=== PATIENT | female | born 1960 | race Caucasian/White ===

== ENCOUNTER 2016-12-17 15:46 | Emergency (ER) | payer OTHER, MEDICAID ==
[~2016-12-17 15:46] MED LIST: AMOXICILLIN500 MG PO; BENAZEPRIL20 M1 PO; DEC150 PO; FLUOXETINE40 MG PO; GABAPENTIN100 M2 PO; GLU500 PO; HYD25 PO; LAC PO; LEVAQUIN750 MG PO; LOT20 PO; NORCO1 TA2 PO; ONDANSETRON4 M3 PO; PRI20 PO; REG10 PO; REM15 PO; RES15 PO; SOD1 PO; VIC PO; VITD PO; ZITHROMAX TRI-500 MG PO
[2016-12-17 15:50] VITALS: BP 132/71
== END 2016-12-17 17:19 | disposition home or self-care (01) ==
LOC: ED 15:46
DX: M54.32 Sciatica, left side (principal); M54.31 Sciatica, right side; M19.90 Unspecified osteoarthritis, unspecified site; K21.9 Gastro-esophageal reflux disease without esophagitis; G89.29 Other chronic pain; E11.9 Type 2 diabetes mellitus without complications; I10 Essential (primary) hypertension; Z88.8 Allergy status to other drugs, medicaments and biological substances; Z79.84 Long term (current) use of oral hypoglycemic drugs
CPT/HCPCS: Q0162

== ENCOUNTER 2018-04-24 22:37 | Emergency (ER) | payer OTHER, MEDICAID ==
[~2018-04-24] VITALS: Ht 157.5 cm; Wt 68.9 kg
[2018-04-24 22:46] VITALS: Ht 157.5 cm; Wt 68.9 kg
[2018-04-24 23:35] LABS: UA SPECIFIC GRAVITY >=1.030 (1.005-1.035); microscopic required? YES; urine erythrocyte NEGATIVE (NEGATIVE)
[2018-04-24 23:38] LABS: BASOPHIL % 0 % (0-2); PLATELET COUNT 445 x10^3mcL (130-400)
[2018-04-24 23:40] LABS: CALCIUM 8.6 mg/dL (8.5-10.1); CARBON DIOXIDE 22.6 mmol/L (21-32); CHLORIDE SERUM 106 mmol/L (98-107); CREATININE SERUM 0.5 mg/dL (0.6-1.0); GFR1 > 60 mL/min; GLUCOSE SERUM 130 mg/dL (74-106); POTASSIUM SERUM 3.7 mmol/L (3.5-5.1); SODIUM SERUM 140 mmol/L (136-145)
[2018-04-24 23:45] LABS: ALKALINE PHOSPHATASE 92 U/L (46-116); ALT/SGPT 15 U/L (14-59); AST/SGOT 10 U/L (15-37); BILIRUBIN TOTAL 0.2 mg/dL (0.20-1.00); TOTAL PROTEIN, SERUM 7.5 g/dL (6.4-8.2)
[2018-04-24 23:48] LABS: ALBUMIN 3.3 g/dL (3.4-5.0)
[2018-04-25 05:07] VITALS: BP 118/61
== END 2018-04-25 05:08 | disposition home or self-care (01) ==
LOC: ED 22:37
PROVIDERS: Emergency Medicine
DX: K57.90 Diverticulosis of intestine, part unspecified, without perforation or abscess without bleeding (principal); I10 Essential (primary) hypertension; E11.9 Type 2 diabetes mellitus without complications; K21.9 Gastro-esophageal reflux disease without esophagitis; M19.90 Unspecified osteoarthritis, unspecified site; Z88.6 Allergy status to analgesic agent
CPT/HCPCS: J1885; J2270; J2405; J7030; Q0092

== ENCOUNTER 2018-04-26 16:30 | Emergency (ER) | payer OTHER, MEDICAID ==
[~2018-04-26] VITALS: Ht 154.9 cm; Wt 68.9 kg
[2018-04-26 16:39] VITALS: Ht 154.9 cm; Wt 68.9 kg
[2018-04-26 18:31] LABS: UA SPECIFIC GRAVITY 1.025 (1.005-1.035); microscopic required? YES; urine erythrocyte NEGATIVE (NEGATIVE)
[2018-04-26 18:54] LABS: CALCIUM 8.8 mg/dL (8.5-10.1); CARBON DIOXIDE 24.1 mmol/L (21-32); CHLORIDE SERUM 107 mmol/L (98-107); CREATININE SERUM 0.5 mg/dL (0.6-1.0); GFR1 > 60 mL/min; GLUCOSE SERUM 117 mg/dL (74-106); POTASSIUM SERUM 3.7 mmol/L (3.5-5.1); SODIUM SERUM 141 mmol/L (136-145)
[2018-04-26 18:57] LABS: BASOPHIL % 0.1 % (0-2); PLATELET COUNT 390 x10^3mcL (130-400)
[2018-04-26 18:58] LABS: ALKALINE PHOSPHATASE 84 U/L (46-116); ALT/SGPT 15 U/L (14-59); AST/SGOT 11 U/L (15-37); BILIRUBIN TOTAL 0.2 mg/dL (0.20-1.00); LIPASE 209 IU/L (73-393); TOTAL PROTEIN, SERUM 6.8 g/dL (6.4-8.2)
[2018-04-26 18:59] LABS: RED CELL DISTRIBUTION WIDTH 17.9 % (11.5-14.5)
[2018-04-26 19:43] VITALS: BP 137/76
== END 2018-04-26 19:43 | disposition home or self-care (01) ==
LOC: ED 16:30
PROVIDERS: Emergency Medicine
DX: G89.29 Other chronic pain (principal); N39.0 Urinary tract infection, site not specified; K21.9 Gastro-esophageal reflux disease without esophagitis; I10 Essential (primary) hypertension; E11.9 Type 2 diabetes mellitus without complications; Z88.5 Allergy status to narcotic agent
CPT/HCPCS: 36415; Q0162; Q0163

== ENCOUNTER 2018-05-22 16:59 | Inpatient (IN) | payer OTHER, MEDICAID ==
[~2018-05-22] VITALS: Ht 154.9 cm; Wt 78.0 kg
[2018-05-22 17:06] VITALS: Ht 154.9 cm; Wt 78.0 kg
[2018-05-22 17:46] LABS: UA SPECIFIC GRAVITY 1.015 (1.005-1.035); microscopic required? YES; urine erythrocyte NEGATIVE (NEGATIVE)
[2018-05-22 18:03] LABS: BASOPHIL % 0.3 % (0-2)
[2018-05-22 18:04] LABS: PLATELET COUNT 581 x10^3mcL (130-400); RED CELL DISTRIBUTION WIDTH 18.8 % (11.5-14.5)
[2018-05-22 18:10] LABS: CALCIUM 8.9 mg/dL (8.5-10.1); CARBON DIOXIDE 26.5 mmol/L (21-32); CHLORIDE SERUM 106 mmol/L (98-107); CREATININE SERUM 0.4 mg/dL (0.6-1.0); GFR1 > 60 mL/min; GLUCOSE SERUM 85 mg/dL (74-106); POTASSIUM SERUM 3.3 mmol/L (3.5-5.1); SODIUM SERUM 143 mmol/L (136-145)
[2018-05-22 18:14] LABS: ALKALINE PHOSPHATASE 105 U/L (46-116); ALT/SGPT 16 U/L (14-59); AMYLASE 54 U/L (25-115); AST/SGOT 25 U/L (15-37); BILIRUBIN TOTAL 0.35 mg/dL (0.20-1.00); LIPASE 115 IU/L (73-393); TOTAL PROTEIN, SERUM 7.7 g/dL (6.4-8.2)
[2018-05-22 18:17] LABS: ALBUMIN 3.1 g/dL (3.4-5.0)
[2018-05-22] MEDS ORDERED: FUROSEMIDE20 MG PO (22:32)
[2018-05-22] MEDS ORDERED: LYRICA75 M1 PO (22:32)
[2018-05-22] MEDS ORDERED: MOT800 PO (22:33)
[2018-05-22 22:53] LABS: MAGNESIUM 1.3 mg/dL (1.8-2.4); PHOSPHOROUS 3.6 mg/dL (2.5-4.9)
[2018-05-22 23:03] LABS: T3 TOTAL 1.61 ng/mL
[2018-05-22 23:04] LABS: FREE T4 1.16 ng/dL (0.76-1.46); FREE THYROXINE INDEX 2.6 ug/dL (1.4-4.5); T4(THYROXINE) 8.4 ug/dL (4.7-13.3)
[2018-05-22 23:31] VITALS: BP 147/83
[2018-05-23 05:29] VITALS: BP 142/75
[2018-05-23 06:58] LABS: MAGNESIUM 1.9 mg/dL (1.8-2.4); PHOSPHOROUS 4.5 mg/dL (2.5-4.9)
[2018-05-23 07:10] LABS: BASOPHIL % 0.6 % (0-2); PLATELET COUNT 478 x10^3mcL (130-400); RED CELL DISTRIBUTION WIDTH 18.2 % (11.5-14.5)
[2018-05-23 10:40] VITALS: BP 162/63
[2018-05-23 12:34] VITALS: BP 152/80
[2018-05-23 18:46] VITALS: BP 127/60
[2018-05-24 04:26] VITALS: BP 138/70
[2018-05-24 07:52] VITALS: BP 155/76
[2018-05-24 08:07] LABS: BASOPHIL % 0.5 % (0-2)
[2018-05-24 08:11] LABS: CALCIUM 8.4 mg/dL (8.5-10.1); CARBON DIOXIDE 26.9 mmol/L (21-32); CHLORIDE SERUM 104 mmol/L (98-107); CREATININE SERUM 0.3 mg/dL (0.6-1.0); GFR1 > 60 mL/min; GLUCOSE SERUM 89 mg/dL (74-106); MAGNESIUM 1.3 mg/dL (1.8-2.4); PHOSPHOROUS 3.4 mg/dL (2.5-4.9); SODIUM SERUM 140 mmol/L (136-145)
[2018-05-24 08:18] LABS: PLATELET COUNT 492 x10^3mcL (130-400); RED CELL DISTRIBUTION WIDTH 17.1 % (11.5-14.5)
[2018-05-24 08:20] LABS: POTASSIUM SERUM 2.5 mmol/L (3.5-5.1)
[2018-05-24 08:22] LABS: rbc morphology (normal/abnorm) ABNORMAL (NORMAL)
[2018-05-24 16:39] VITALS: BP 135/68
[2018-05-24 17:17] LABS: CALCIUM 8.6 mg/dL (8.5-10.1); CARBON DIOXIDE 26.8 mmol/L (21-32); CHLORIDE SERUM 105 mmol/L (98-107); CREATININE SERUM 0.3 mg/dL (0.6-1.0); GFR1 > 60 mL/min; GLUCOSE SERUM 95 mg/dL (74-106); POTASSIUM SERUM 3.6 mmol/L (3.5-5.1); SODIUM SERUM 139 mmol/L (136-145)
[2018-05-24 21:33] VITALS: BP 136/61
[2018-05-25 05:30] VITALS: BP 102/51
[2018-05-25 06:37] LABS: BASOPHIL % 0.3 % (0-2)
[2018-05-25 06:46] LABS: PLATELET COUNT 484 x10^3mcL (130-400); RED CELL DISTRIBUTION WIDTH 18.9 % (11.5-14.5)
[2018-05-25 07:05] LABS: CALCIUM 9.5 mg/dL (8.5-10.1); CARBON DIOXIDE 25.4 mmol/L (21-32); CHLORIDE SERUM 103 mmol/L (98-107); CREATININE SERUM 0.6 mg/dL (0.6-1.0); GFR1 > 60 mL/min; GLUCOSE SERUM 94 mg/dL (74-106); MAGNESIUM 1.4 mg/dL (1.8-2.4); PHOSPHOROUS 5.1 mg/dL (2.5-4.9); POTASSIUM SERUM 3.9 mmol/L (3.5-5.1); SODIUM SERUM 139 mmol/L (136-145)
[2018-05-25 08:30] VITALS: BP 132/69
[2018-05-25 14:16] VITALS: BP 122/58
[2018-05-25 16:48] VITALS: BP 119/61
[2018-05-25 21:21] VITALS: BP 105/48
[2018-05-26 04:54] VITALS: BP 117/68
[2018-05-26 07:13] LABS: CALCIUM 9.2 mg/dL (8.5-10.1); CARBON DIOXIDE 22.7 mmol/L (21-32); CHLORIDE SERUM 104 mmol/L (98-107); CREATININE SERUM 0.3 mg/dL (0.6-1.0); GFR1 > 60 mL/min; GLUCOSE SERUM 91 mg/dL (74-106); MAGNESIUM 1.5 mg/dL (1.8-2.4); PHOSPHOROUS 4.6 mg/dL (2.5-4.9); POTASSIUM SERUM 3.8 mmol/L (3.5-5.1); SODIUM SERUM 139 mmol/L (136-145)
[2018-05-26 07:29] LABS: BASOPHIL % 0.4 % (0-2); PLATELET COUNT 475 x10^3mcL (130-400); RED CELL DISTRIBUTION WIDTH 18.7 % (11.5-14.5)
[2018-05-26 07:30] LABS: rbc morphology (normal/abnorm) ABNORMAL (NORMAL)
[2018-05-26 08:11] LABS: AMPHETAMINE QUAL UR NONE DETECTED (See below)
[2018-05-26 08:30] VITALS: BP 129/71
[2018-05-26 16:41] VITALS: BP 122/67
[2018-05-26 21:30] VITALS: BP 125/67
[2018-05-27 05:46] VITALS: BP 122/70
[2018-05-27 06:43] LABS: BASOPHIL % 0.5 % (0-2)
[2018-05-27 06:56] LABS: PLATELET COUNT 478 x10^3mcL (130-400); RED CELL DISTRIBUTION WIDTH 18.4 % (11.5-14.5)
[2018-05-27 06:57] LABS: rbc morphology (normal/abnorm) ABNORMAL (NORMAL)
[2018-05-27 07:26] LABS: CALCIUM 8.7 mg/dL (8.5-10.1); CARBON DIOXIDE 15.5 mmol/L (21-32); CHLORIDE SERUM 107 mmol/L (98-107); CREATININE SERUM 0.4 mg/dL (0.6-1.0); GFR1 > 60 mL/min; GLUCOSE SERUM 71 mg/dL (74-106); MAGNESIUM 1.4 mg/dL (1.8-2.4); PHOSPHOROUS 3.1 mg/dL (2.5-4.9); POTASSIUM SERUM 3.1 mmol/L (3.5-5.1); SODIUM SERUM 141 mmol/L (136-145)
[2018-05-27 08:24] VITALS: BP 141/73
[2018-05-27] MEDS ORDERED: PHE25I IV (09:54)
[2018-05-27] MEDS ORDERED: SCOP TD (09:55)
[2018-05-27 13:18] VITALS: BP 142/69
[2018-05-27 16:43] VITALS: BP 132/59
[2018-05-27 20:56] VITALS: BP 119/64
[2018-05-28 05:04] VITALS: BP 129/63
[2018-05-28] MEDS ORDERED: REG10I IV (06:51)
[2018-05-28 09:14] LABS: CARBON DIOXIDE 20.2 mmol/L (21-32); CHLORIDE SERUM 108 mmol/L (98-107); CREATININE SERUM 0.3 mg/dL (0.6-1.0); GFR1 > 60 mL/min; GLUCOSE SERUM 82 mg/dL (74-106); MAGNESIUM 1.1 mg/dL (1.8-2.4); PHOSPHOROUS 2.3 mg/dL (2.5-4.9); POTASSIUM SERUM 3.2 mmol/L (3.5-5.1); SODIUM SERUM 142 mmol/L (136-145)
[2018-05-28 09:18] VITALS: BP 150/70
[2018-05-28 10:16] LABS: BASOPHIL % 2.3 % (0-2); PLATELET COUNT 480 x10^3mcL (130-400); RED CELL DISTRIBUTION WIDTH 18.7 % (11.5-14.5)
[2018-05-28] MEDS ORDERED: REG10 PO (10:36)
[2018-05-28] MEDS ORDERED: CAR1 PO (10:36)
[2018-05-28 13:07] VITALS: BP 117/58; BP 150/70
[2018-05-28 17:44] VITALS: BP 141/75
[2018-05-28 21:35] VITALS: BP 155/72
[2018-05-29 06:09] VITALS: BP 129/70
[2018-05-29 08:34] VITALS: BP 120/66
[2018-05-29 10:35] LABS: BASOPHIL % 1.4 % (0-2)
[2018-05-29 10:36] LABS: PLATELET COUNT 464 x10^3mcL (130-400); RED CELL DISTRIBUTION WIDTH 18.8 % (11.5-14.5); rbc morphology (normal/abnorm) ABNORMAL (NORMAL)
[2018-05-29 10:49] LABS: CALCIUM 8.3 mg/dL (8.5-10.1); CARBON DIOXIDE 25.3 mmol/L (21-32); CHLORIDE SERUM 103 mmol/L (98-107); CREATININE SERUM 0.3 mg/dL (0.6-1.0); GFR1 > 60 mL/min; GLUCOSE SERUM 106 mg/dL (74-106); PHOSPHOROUS 2.6 mg/dL (2.5-4.9); SODIUM SERUM 137 mmol/L (136-145)
[2018-05-29 10:52] LABS: POTASSIUM SERUM 2.1 mmol/L (3.5-5.1)
[2018-05-29 17:00] VITALS: BP 126/60
[2018-05-29 20:56] VITALS: BP 128/66
[2018-05-30 05:09] VITALS: BP 144/72
[2018-05-30 07:29] LABS: BASOPHIL % 1.7 % (0-2)
[2018-05-30 07:43] LABS: PLATELET COUNT 494 x10^3mcL (130-400); RED CELL DISTRIBUTION WIDTH 18.8 % (11.5-14.5)
[2018-05-30 07:44] LABS: CALCIUM 8.3 mg/dL (8.5-10.1); CARBON DIOXIDE 24.4 mmol/L (21-32); CHLORIDE SERUM 106 mmol/L (98-107); CREATININE SERUM 0.2 mg/dL (0.6-1.0); GFR1 > 60 mL/min; GLUCOSE SERUM 101 mg/dL (74-106); MAGNESIUM 1.4 mg/dL (1.8-2.4); PHOSPHOROUS 3.3 mg/dL (2.5-4.9); SODIUM SERUM 142 mmol/L (136-145)
[2018-05-30 07:57] LABS: POTASSIUM SERUM 2.4 mmol/L (3.5-5.1)
[2018-05-30 09:17] VITALS: BP 125/68
[2018-05-30 17:09] VITALS: BP 142/68
[2018-05-30 18:51] LABS: CALCIUM 8.5 mg/dL (8.5-10.1); CARBON DIOXIDE 27.9 mmol/L (21-32); CHLORIDE SERUM 107 mmol/L (98-107); CREATININE SERUM 0.2 mg/dL (0.6-1.0); GFR1 > 60 mL/min; GLUCOSE SERUM 99 mg/dL (74-106); MAGNESIUM 1.6 mg/dL (1.8-2.4); SODIUM SERUM 144 mmol/L (136-145)
[2018-05-30 19:08] LABS: POTASSIUM SERUM 2.9 mmol/L (3.5-5.1)
[2018-05-30 20:53] VITALS: BP 136/65
[2018-05-31 05:11] VITALS: BP 119/65
[2018-05-31 06:41] LABS: CALCIUM 8.1 mg/dL (8.5-10.1); CARBON DIOXIDE 27.2 mmol/L (21-32); CHLORIDE SERUM 106 mmol/L (98-107); CREATININE SERUM 0.3 mg/dL (0.6-1.0); GFR1 > 60 mL/min; GLUCOSE SERUM 108 mg/dL (74-106); MAGNESIUM 1.4 mg/dL (1.8-2.4); PHOSPHOROUS 4.1 mg/dL (2.5-4.9); SODIUM SERUM 143 mmol/L (136-145)
[2018-05-31 06:46] LABS: POTASSIUM SERUM 2.7 mmol/L (3.5-5.1)
[2018-05-31 08:30] VITALS: BP 122/52
[2018-05-31 09:45] LABS: BASOPHIL % 0.5 % (0-2)
[2018-05-31 09:48] LABS: RED CELL DISTRIBUTION WIDTH 19.1 % (11.5-14.5)
[2018-05-31 10:00] LABS: PLATELET COUNT 515 x10^3mcL (130-400)
[2018-05-31 16:36] VITALS: BP 124/60
[2018-05-31 21:24] VITALS: BP 109/46
[2018-06-01 05:11] VITALS: BP 116/62
[2018-06-01 06:59] LABS: BASOPHIL % 1.7 % (0-2)
[2018-06-01 07:20] LABS: CALCIUM 8.1 mg/dL (8.5-10.1); CARBON DIOXIDE 24.9 mmol/L (21-32); CHLORIDE SERUM 104 mmol/L (98-107); CREATININE SERUM 0.4 mg/dL (0.6-1.0); GFR1 > 60 mL/min; GLUCOSE SERUM 120 mg/dL (74-106); MAGNESIUM 1.6 mg/dL (1.8-2.4); PHOSPHOROUS 4.1 mg/dL (2.5-4.9); SODIUM SERUM 139 mmol/L (136-145)
[2018-06-01 07:34] LABS: POTASSIUM SERUM 2.7 mmol/L (3.5-5.1)
[2018-06-01 09:01] LABS: PLATELET COUNT 510 x10^3mcL (130-400); RED CELL DISTRIBUTION WIDTH 19.7 % (11.5-14.5)
[2018-06-01 09:35] VITALS: BP 118/54
[2018-06-01 12:24] VITALS: BP 114/52
[2018-06-01 17:04] VITALS: BP 132/63
[2018-06-01 22:43] VITALS: BP 125/83
[2018-06-02 05:19] VITALS: BP 100/50
[2018-06-02 06:54] LABS: RED CELL DISTRIBUTION WIDTH 19.8 % (11.5-14.5)
[2018-06-02 07:24] LABS: CALCIUM 8.2 mg/dL (8.5-10.1); CARBON DIOXIDE 27.1 mmol/L (21-32); CHLORIDE SERUM 106 mmol/L (98-107); CREATININE SERUM 0.3 mg/dL (0.6-1.0); GFR1 > 60 mL/min; GLUCOSE SERUM 94 mg/dL (74-106); MAGNESIUM 1.5 mg/dL (1.8-2.4); POTASSIUM SERUM 3.2 mmol/L (3.5-5.1); SODIUM SERUM 142 mmol/L (136-145)
[2018-06-02 08:45] VITALS: BP 117/58
[2018-06-02 09:55] LABS: PLATELET COUNT 506 x10^3mcL (130-400)
[2018-06-02 14:28] LABS: ATYPICAL LYMPH 4 %; BAND NEUTROPHIL 0 % (0-10); BASOPHIL 0 % (0-2); MONOCYTE 34 % (0-7); SEGMENTED NEUTROPHILS 36 % (37-75)
[2018-06-02 14:31] LABS: PLATELET MORPHOLOGY PLATELETS INCREASED; rbc morphology (normal/abnorm) ABNORMAL (NORMAL)
[2018-06-02] MEDS ORDERED: ZOS3PM IV (14:35)
[2018-06-02 17:00] VITALS: BP 113/56
== END 2018-06-02 19:00 | DRG 542 ==
LOC: ED 16:59 → MU 22:15
PROVIDERS: Family Medicine; General Practice; Internal Medicine
DX: M48.56XA Collapsed vertebra, not elsewhere classified, lumbar region, initial encounter for fracture (principal); N17.0 Acute kidney failure with tubular necrosis; N39.0 Urinary tract infection, site not specified; E44.0 Moderate protein-calorie malnutrition; E11.42 Type 2 diabetes mellitus with diabetic polyneuropathy; E11.65 Type 2 diabetes mellitus with hyperglycemia; I10 Essential (primary) hypertension; E87.6 Hypokalemia; E83.42 Hypomagnesemia; D50.9 Iron deficiency anemia, unspecified; M85.88 Other specified disorders of bone density and structure, other site; M19.90 Unspecified osteoarthritis, unspecified site; Z79.899 Other long term (current) drug therapy; Z68.26 Body mass index [BMI] 26.0-26.9, adult
CPT/HCPCS: 82962; 84439; 90658; 97110-GP; 97530-GP; A9577; C9113; J0696; J1644; J1885; J2060; J2270; J2405; J2543; J2550; J2765; J3010; J3475; J3480; J3490; J7030; J7042; J7050; J8597; Q0092; Q0163; Q9967